=== PATIENT | female | born 1970 | race Caucasian/White ===

== ENCOUNTER 2020-06-27 09:59 | Outpatient (CLI) | payer BC ==
[2020-06-27 11:17] LABS: Alanine Aminotransferase 12 units/L (7-56); Albumin 4.3 g/dL (3.9-5); Blood Urea Nitrogen 16 mg/dL (7-17); Calcium 9.7 mg/dL (8.4-10.2); Chol/HDL Ratio 1.79 %; HDL Cholesterol 96 mg/dL (40-59); Hemolysis Index 2; LDL Cholesterol,Direct 78 mg/dL (50-130)
[2020-06-27 11:20] LABS: BUN/Creatinine Ratio 40
== END 2020-06-27 10:00 | disposition home or self-care (01) ==
LOC: LAB 09:59
PROVIDERS: ATTEND Internal Medicine
DX: E11.65 Type 2 diabetes mellitus with hyperglycemia (principal); R20.2 Paresthesia of skin; Z13.220 Encounter for screening for lipoid disorders; Z13.21 Encounter for screening for nutritional disorder
CPT/HCPCS: 36415; 80053; 80061; 82607; 83036

== ENCOUNTER 2020-11-14 08:57 | Outpatient (CLI) | payer BC | END 2020-11-14 08:58 | disposition home or self-care (01) | LOC: LAB 08:57 | PROVIDERS: ATTEND Internal Medicine | DX: E11.65 Type 2 diabetes mellitus with hyperglycemia (principal) | CPT/HCPCS: 36415; 83036 ==